=== PATIENT | male | born 1950 | race Caucasian/White ===

== ENCOUNTER 2019-03-13 10:06 | Emergency (ER) | payer OTHER ==
[~2019-03-13] VITALS: Ht 165.1 cm; Wt 74.8 kg
== END 2019-03-13 13:58 | disposition home or self-care (01) ==
LOC: ER 10:06
DX: M25.522 Pain in left elbow (principal); M25.511 Pain in right shoulder

== ENCOUNTER 2022-12-01 13:21 | Emergency (ER) | payer OTHER ==
[~2022-12-01] VITALS: Ht 165.1 cm; Wt 74.8 kg
[2022-12-01] MEDS ORDERED: AMLODIPINE BESY10 MG PO (14:28)
[2022-12-01] MEDS ORDERED: ROSUVASTATIN CA10 MG PO (14:28)
[2022-12-01] MEDS ORDERED: PANTOPRAZOLE SO40 MG PO (14:28)
== END 2022-12-01 18:25 | disposition home or self-care (01) ==
LOC: ER 13:21
DX: M54.2 Cervicalgia (principal); M25.512 Pain in left shoulder

== ENCOUNTER 2023-05-19 12:48 | Emergency (ER) | payer OTHER ==
[~2023-05-19] VITALS: Ht 165.1 cm; Wt 68.0 kg
[~2023-05-19 12:48] MED LIST: AMLODIPINE BESY10 MG PO; PANTOPRAZOLE SO40 MG PO; ROSUVASTATIN CA10 MG PO
== END 2023-05-19 14:48 | disposition home or self-care (01) ==
LOC: ER 12:48
DX: I10 Essential (primary) hypertension (principal)